=== PATIENT | male | born 1955 | race Caucasian/White ===

== ENCOUNTER 2022-04-09 06:10 | Observation (INO) ==
--- NOTE | 2022-04-03 09:38 | Anesthesiology Consultation ---
Date of Service April 03, 2022 Assessment & Plan (1) Encounter for pre-operative examination: COVID screening: Per assessment on 04/03: No known COVID-19 positive contacts or current COVID-19 related symptoms. Travel screen negative. Patient vaccinated. At surgeon discretion if preop Covid testing being done. Chart Review Chart Review: Acceptable Risk for Surgery and Patient NOT seen in Pre Admission Testing History Surgery Operation Date: 04/09/22 07:30 Proposed Procedures p Robotic Laparoscopic Radical Assisted Retropubic Prostatectomy, Possible Open, Possible Pelvic Lymph Node Dissection, Possible Suprapubic Tube Placement - Bayron Fox MD Height/Weight Height: 6 ft Weight: 102.512 kg Allergies Allergy/AdvReac Type Severity Reaction Status Date / Time No Known Allergies Allergy Unverified 04/03/22 07:34 Medications Home Medications Medication Instructions Recorded Confirmed Last Taken No Known Home Medications 04/03/22 04/03/22 Unknown Past Medical History Medical History Prostate cancer dx 03/2022 Past Family History Family History Father Heart disease Uncle Prostate cancer Other No family history of adverse response to anesthesia Past Surgical History Surgical History History of colonoscopy History of left hip replacement History of prostate biopsy History of umbilical hernia repair History of wisdom tooth extraction Social History Smoking Status: Never smoker Do You Dip or Chew Tobacco: No Hx Alcohol Use: No Hx Substance Use: No substance use type: does not use Lab Results Anesthesia Preop Results Results Anesthesia Widget: WBC 5.83 K/ul (4.8-10.8) 03/25/22 Hgb 15.4 g/dl (14.0-18.0) 03/25/22 Hct 43.6 % (40.1-51.0) 03/25/22 Plt 189 K/uL (130-400) 03/25/22 Na 139 mmol/L (136-145) 03/25/22 K 4.0 mmol/L (3.5-5.1) 03/25/22 Cl 108 mmol/L (98-107) H 03/25/22 CO2 24 mmol/L (21-32) 03/25/22 BUN 17 mg/dl (6-23) 03/25/22 Creat 1.11 mg/dl (0.6-1.4) 03/25/22 Glucose Level 104 mg/dl (70-99(Fasting)) H 03/25/22 Urine Color Yellow 03/25/22 Urine Appearance Clear (Clear) 03/25/22 Urine pH 5.0 (4.5-7.5) 03/25/22 Urine Specific [place] 1.022 (1.000-1.030) 03/25/22 Urine Protein Negative (Negative) 03/25/22 Urine Glucose (UA) Negative (Negative) 03/25/22 Urine Ketones Negative (Negative) 03/25/22 Urine Blood Negative (Negative) 03/25/22 Urine Nitrite Negative (Negative) 03/25/22 Urine Bilirubin Negative (Negative) 03/25/22 Urine Urobilinogen Negative (Negative) 03/25/22 Urine Leukocyte Esterase Negative (Negative) 03/25/22 Testing Electrocardiogram Date: 03/25/22 Findings: + NSR @ (60) Chest X-Ray Date: 03/25/22 FINDINGS: Lung volumes are normal. Lungs are clear. There is no pneumothorax or pleural effusion. Cardiac size is normal. Mediastinal contours are normal. There is no evidence for pulmonary edema. IMPRESSION: No acute cardiopulmonary findings.
[~2022-04-09 06:10] MED LIST: HEPARIN SOD 5,000 UNIT/0.5 ML VIAL SQ SCH; LR 15ML/HR IV SCH; ceFAZolin 2000MG 2,000 MG/15 ML SYR IV SCH
--- NOTE | 2022-04-09 07:06 | History & Physical Bridge Note ---
Date of Service April 09, 2022 History & Physical Bridge Note I have examined the patient, reviewed the History & Physical and in the interval since the performance of the History & Physical I have noted the following changes of clinical significance: no changes noted
[2022-04-09] MEDS ORDERED: fentaNYL citrate 100 MCG/2 ML VIAL IV PRN (07:33)
[2022-04-09] MEDS ORDERED: ePHEDrine sulfate 50 MG/ML AMP IV PRN (07:33)
[2022-04-09] MEDS ORDERED: ATROPINE SULFATE 0.1 MG/ML 10ML SYR IV PRN (07:33)
[2022-04-09] MEDS ORDERED: ONDANSETRON INJ 2 MG/ML 2 ML VIAL IV PRN ×2 (07:33→15:47)
[2022-04-09] MEDS ORDERED: fentaNYL citrate 100 MCG/2 ML VIAL ONE ×2 (07:41)
[2022-04-09] MEDS ORDERED: MIDAZOLAM HCL 1 MG/ML 2ML VIAL ONE (07:41)
[2022-04-09] MEDS ORDERED: BUPIVACAINE 0.5 % 5 MG/1 ML MPF 30ML VIAL ONE (07:48)
[2022-04-09] MEDS ORDERED: BELLADONNA/OPIUM SUPP 60 MG SUPP PR ONE ×2 (08:15→08:45)
[2022-04-09] MEDS ORDERED: ROCURONIUM BROMIDE 10 MG/ML 5 ML VIAL IV ONE ×5 (08:16→10:17)
[2022-04-09] MEDS ORDERED: ONDANSETRON INJ 2 MG/ML 2 ML VIAL ONE ×2 (08:16→09:05)
[2022-04-09] MEDS ORDERED: DEXAMETHASONE SOD INJ 4 MG/ML VIAL ONE (08:16)
[2022-04-09] MEDS ORDERED: PROPOFOL IV EMULSION 10 MG/ML 20 ML VIAL IV ONE (08:16)
[2022-04-09] MEDS ORDERED: LIDOCAINE 2% MPF LOCAL 5 ML VIAL INFIL ONE (08:16)
[2022-04-09] MEDS ORDERED: SURGICEL ABSORB HEMOSTAT 2IN X 14IN TOP ONE ×2 (08:40→09:11)
[2022-04-09] MEDS ORDERED: FLOSEAL HEMOSTATIC MATRIX 10ML TOP ONE (08:40)
[2022-04-09] MEDS ORDERED: HYDROmorphone INJ 2 MG/ML SYR/VIAL ONE (08:50)
[2022-04-09] MEDS ORDERED: GLYCOPYRROLATE 0.2 MG/ML VIAL ONE (09:06)
[2022-04-09] MEDS ORDERED: NEOSTIGMINE METHYLSULFATE 1 MG/ML 10ML VIAL ONE (09:06)
[2022-04-09] MEDS ORDERED: PHENYLEPHRINE 100MCG/ML 5ML SYR ONE (09:06)
[2022-04-09] MEDS ORDERED: LARYING-O-JET KIT (LTA) ONE (10:11)
--- NOTE | 2022-04-09 11:27 | Operative Report ---
[facility] Post Operative Report Pre & Post Diagnosis Operation Date: 04/09/22 08:05 Pre-Op Diagnosis: Prostate Cancer Post-Op Diagnosis: Prostate Cancer I identified the patient and participated in the time-out.: Yes Procedure Operation Date: 04/09/22 08:05 Actual Procedures p Robotic Assisted Laparoscopic Radical Retropubic Prostatectomy, Pelvic Lymph Node Dissection(Not Applicable) - Bayron Fox MD Surgeon Bayron Fox MD Skip Hoist Engineer Edna Terrell Estimated Blood Loss 150 Findings Consistent with Post-Op Diagnosis Specimens 1. Periprostatic fat 2. Left pelvic lymph nodes 3. Right pelvic lymph nodes 4. Prostate and seminal vesicles Description of Procedure The patient was identified in the preoperative holding area, appropriate informed consents were reviewed and completed, and he was transported to the operating suite. Subcutaneous heparin was administered in the pre-operative holding area. Upon arrival in the operating suite, he received appropriate antibiotics and general anesthesia. He was positioned in dorsal lithotomy, a B&O suppository was inserted after digital rectal exam, and he was prepped and draped in standard fashion. A Reed catheter was inserted in the sterile field. A Veress needle was passed per umbilicus with uniform insufflation of the abdomen to 15mmHg. He was placed in steep Trendelenburg position. A periumbilical incision was then made to accommodate a 12mm Visiport with 10mm 0degree laparoscope. Inspection of the abdomen was carried out, and there was no evidence of traumatic entry or injury secondary to the Veress needle. After confirming a clear anterior abdominal wall, ports were subsequently placed in standard robotic prostatectomy fashion without incident. To begin the robotic portion of the case, I attempted to clear the pouch of Arjun, however he had small bowel adherent to the anterior wall of the rectum making it somewhat challenging to completely empty this space. Rather than perform a posterior dissection I elected to proceed in the traditional anterior fashion and did not entirely open the pouch of Arjun. The medial umbilical ligaments were then controlled with bipolar electrocautery just inferior to the umbilicus. Following cauterization, they were divided utilizing monopolar cautery. A peritoneal incision was carried from this location to the medial aspect of the internal inguinal rings bilaterally with care to avoid opening through the ring. This incision was concluded when the vas deferens was reached. Dissection of the bladder and prostate off of the posterior aspect of the pubic arch was completed allowing full visualization of the prostate. The fat overlying the prostate was removed en bloc and passed off the table as a specimen labeled "periprostatic fat". The endopelvic fascia was cleared during this portion of the procedure, and subsequently opened - first on the right and then the left. The incision through the endopelvic fascia began near the prostate-bladder junction and was carried to the apex with extreme care to preserve all lateral levator musculature as well as the periurethral mus culature and sphincter complex. I additionally preserved the puboprostatic ligaments. I then controlled the DVC with a 3-0 V-lock suture in overlapping/figure of 8 fashion. The lymph node dissection was then conducted. External iliac vessels were identified on the pelvic side wall. The packet of fat and lymphatic tissue that resides just under the iliac vein was elevated and off of the vein with a split and roll technique. The packet was dissected laterally to the circumflex vein and distally to the obturator nerve which was preserved. The proximal aspect of the packet was carried towards the bifurcation of the iliac vessels. A combination of monopolar and bipolar cautery were used to assist with control. After completing the dissection on both sides, the packets were collected and passed off of the table as specimens labeled "pelvic lymph nodes". My attention then returned to the prostate, with identification of the bladder neck aided by gentle traction on the Reed catheter and lateral to medial pressure at the presumed level of the bladder neck with the robotic instruments. An anterior cystotomy was made, the Reed balloon deflated and the catheter guided through the incision to allow anterior retraction. I attempted to preserve maximal bladder neck musculature as I circumferentially dissected around the bladder neck. After incision through the posterior aspect of the mucosa, the dissection was carried through detrusor muscle until the bilateral ampullae of the vasa were identified. I then proceeded to dissect a length of vas before transecting each vas. I then dissected each seminal vesicle entirely and utilize these structures to elevate the prostate and perform a posterior dissection behind the prostate splitting the posterior fascia. Care was used to avoid encroachment upon the prostate. Hemostasis was excellent. An incision in the lateral prostatic fascia was then made bilaterally to facilitate control of the vascular pedicles and preservation of the nerve bundles. Vasculature running along the posterior/lateral aspect of the prostate was preserved as well as the tissue containing the nerves. I took a more cautious approach on the right side where all of his positive biopsy cores were located. Nerves were spared aggressively on the left. The pedicles were then controlled with a series of Weck clips. The apical attachments of the prostate were remaining at that stage. The DVC was divided after control with bipolar cautery over the prostate. Continuous inspection from anterior and lateral views allowed me to closely follow the apical contour of the prostate and maximally preserve urethral length and tissue. The prostate was entirely freed at that point, and collected in an EndoCatch bag before being moved out of the field of vision. Hemostasis was confirmed and anastomosis of the bladder and urethra was completed utilizing a double armed V- Lock stitch. A new Reed catheter was inserted and the anastomosis tested with irrigation. There was no evidence of leak. A vamshi style stitch was placed bilaterally to functionally marsupialize the area of the lymph node dissection. The robot was undocked, the specimen extracted through expansion of the sybil- umbilical camera port. The fascia was closed with a series of 0-PDS figure of 8 stitches. The right regulatory assistant port was closed in two layers - with a figure of 8 0-Vicryl to reapproximate the fascia followed by 4-0 Monocryl to close the skin. Monocryl was used to close all other skin incisions. All wounds were dressed with Dermabond. The case was concluded and the patient taken to the PACU in stable condition. Edna Terrell assisted from incision to closure. I attest to the content of the Intraoperative Record and any orders documented therein. Any exceptions are noted below.
[2022-04-09 12:00] LABS: Basophils # (auto) 0.02 K/uL (0-0.2); Basophils % (auto) 0.3 %; Eosinophils # (auto) 0.02 K/uL (0-0.50); Eosinophils % (auto) 0.3 %; Hematocrit (blood only) 44.8 % (40.1-51.0); Hemoglobin 15.3 g/dl (14.0-18.0); Immature Granulocytes # (auto) 0.03 K/uL (0.00-0.02); Immature Granulocytes % (auto) 0.4 %; Lymphocytes # (auto) 0.69 K/uL (1.2-3.4); Lymphocytes % (auto) 8.7 %; Mean Corpuscular Hemoglobin 30.2 pg (25.0-34.0); Mean Corpuscular Hgb Conc 34.2 g/dL (32.0-36.0); Mean Corpuscular Volume 88.5 fL (80.0-100.0); Mean Platelet Volume 9.4 fL (9.4-12.4); Monocytes # (auto) 0.13 K/uL (0.24-0.82); Monocytes % (auto) 1.6 %; Neutrophils # (auto) 7.03 K/uL (1.4-6.5); Neutrophils % (auto) 88.7 %; Platelet Count 182 K/uL (130-400); RDW Standard Deviation 38.3 fL (36.4-46.3); Red Blood Count 5.06 M/uL (4.63-6.08); White Blood Count 7.92 K/ul (4.8-10.8)
[2022-04-09] MEDS: HYDROmorphone INJ 1 MG/ML SYRINGE IV PRN ×4 (12:20→12:35)
[2022-04-09] MEDS ORDERED: HYDROmorphone INJ 1 MG/ML SYRINGE ONE (12:20)
[2022-04-09 12:22] LABS: BUN Creatinine Ratio 15.3 (10-20); Calcium 8.7 mg/dl (8.5-10.1); Creatinine Clr Calc Pharmacy 62.5 ml/min; Est GFR (African American) 58.2 ml/min; Est GFR (Non-African American) 50.2 ml/min; Potassium 4.4 mmol/L (3.5-5.1)
[2022-04-09] MEDS ORDERED: METOCLOPRAMIDE HCL INJ 5 MG/ML 2 ML VIAL IV PRN (12:32)
[2022-04-09] MEDS ORDERED: METOCLOPRAMIDE HCL INJ 5 MG/ML 2 ML VIAL ONE (12:33)
--- NOTE | 2022-04-09 13:08 | Anesthesiology Progress Note ---
Date of Service April 09, 2022 Anesthesia Post Procedure Vital Signs Vital Signs: Temp Pulse Resp BP Pulse Ox O2 Del Method O2 Flow Rate 04/09/22 12:50 54 L 17 119/66 95 Nasal Cannula 4 04/09/22 12:40 59 L 17 114/75 95 Nasal Cannula 4 04/09/22 12:30 36.3 C L 59 L 18 107/66 95 Nasal Cannula 4 04/09/22 12:20 55 L 16 109/70 95 Nasal Cannula 4 04/09/22 12:10 61 16 107/70 95 Oxymask 5 04/09/22 12:00 64 16 111/73 95 Oxymask 5 04/09/22 11:50 68 16 116/78 95 Oxymask 5 04/09/22 11:40 69 18 119/78 93 Oxymask 5 04/09/22 11:31 36.3 C L 75 18 127/77 93 Oxymask 5 04/09/22 07:33 36.9 C 70 20 165/93 H 94 Room Air Transfer of Care Handoff Completed per policy Notes Mental Status: alert / awake / arousable and participated in evaluation Patient Amnestic to Procedure: Yes Nausea / Vomiting: adequately controlled Pain: adequately controlled Airway Patency, RR, SpO2: stable & adequate BP & HR: stable & adequate Hydration State: stable & adequate Anesthetic Complications: no major complications apparent and Pt Satisfied with anesthetic care
[2022-04-09] MEDS ORDERED: ACETAMINOPHEN 325 MG TAB PO PRN (15:47)
[2022-04-09] MEDS ORDERED: oxyCODONE HCL IR 5 MG TAB (IMMEDIATE RELEASE) PO PRN ×2 (15:47)
[2022-04-09] MEDS ORDERED: MoRPHine SULFATE 4 MG/ML 1 ML CARP\\VIAL IV PRN (15:47)
[2022-04-09] MEDS ORDERED: MoRPHine SULFATE 2 MG/ML CARP IV PRN (15:47)
[2022-04-09] MEDS: LACTATED RINGER'S 1,000 ML IV SCH (17:32)
[2022-04-09] MEDS: ceFAZolin 2000MG 2,000 MG/15 ML SYR IV SCH (18:44)
[2022-04-09] MEDS: HEPARIN SOD 5,000 UNIT/0.5 ML VIAL SQ SCH (20:19)
[2022-04-09] MEDS: DOCUSATE SODIUM 100 MG CAP PO SCH (20:19)
[2022-04-10] MEDS: ceFAZolin 2000MG 2,000 MG/15 ML SYR IV SCH (00:05)
[2022-04-10] MEDS: LACTATED RINGER'S 1,000 ML IV SCH ×2 (02:33→12:10)
[2022-04-10] MEDS: HEPARIN SOD 5,000 UNIT/0.5 ML VIAL SQ SCH (08:04)
[2022-04-10] MEDS: DOCUSATE SODIUM 100 MG CAP PO SCH (08:04)
[2022-04-10 08:52] LABS: Basophils # (auto) 0.01 K/uL (0-0.2); Basophils % (auto) 0.1 %; Hematocrit (blood only) 42.6 % (40.1-51.0); Hemoglobin 14.9 g/dl (14.0-18.0); Immature Granulocytes # (auto) 0.08 K/uL (0.00-0.02); Immature Granulocytes % (auto) 0.6 %; Lymphocytes # (auto) 0.93 K/uL (1.2-3.4); Lymphocytes % (auto) 6.6 %; Mean Corpuscular Hemoglobin 30.5 pg (25.0-34.0); Mean Corpuscular Volume 87.1 fL (80.0-100.0); Mean Platelet Volume 9.8 fL (9.4-12.4); Monocytes # (auto) 0.87 K/uL (0.24-0.82); Monocytes % (auto) 6.2 %; Neutrophils # (auto) 12.15 K/uL (1.4-6.5); Neutrophils % (auto) 86.5 %; Platelet Count 184 K/uL (130-400); RDW Coefficient of Variation 11.8 % (11.5-14.5); RDW Standard Deviation 37.5 fL (36.4-46.3); Red Blood Count 4.89 M/uL (4.63-6.08); White Blood Count 14.04 K/ul (4.8-10.8)
--- NOTE | 2022-04-10 09:12 | Urology Progress Note ---
Date of Service April 10, 2022 Assessment & Plan (1) Prostate cancer: Plan: Postop day #1 status post robotic prostatectomy Doing extremely well Advance diet this morning Reed teaching Discharge home later this morning Admission and Anticipated Discharge Date Admission Date: April 09, 2022 Subjective No major issues overnight He was ambulatory His pain is well controlled Is tolerating diet He is anxious to go home Physical Exam Physical Exam: Hyperlipidemia patient abdomen soft, incisions completely appropriate, no concerning findings Urine is clear Results & Data ([facility]) Vital Signs (Past 12 Hours) Vital Signs Temp Pulse Resp BP BP Pulse Ox O2 Del Method 04/10/22 07:40 36.8 C 60 20 109/68 92 Room Air 04/10/22 03:00 37.4 C 56 L 20 98/58 L 91 Room Air 04/09/22 22:11 36.9 C 60 18 105/67 94 Room Air PG Care Time/CCT Total # of Minutes Spent Total Time Spent with Patient: Total time spent is greater than 50% in coordination of care (as documented) at patient's floor/unit and/or counseling patient: Coding Level of Care Code None Diagnoses Prostate cancer C61
[2022-04-10 09:26] LABS: BUN Creatinine Ratio 16.2 (10-20); Calcium 8.7 mg/dl (8.5-10.1); Creatinine Clr Calc Pharmacy 76.9 ml/min; Est GFR (African American) 74.9 ml/min; Est GFR (Non-African American) 64.6 ml/min; Potassium 4.3 mmol/L (3.5-5.1)
--- NOTE | 2022-04-10 17:19 | Discharge Summary ---
Date of Service April 10, 2022 Admission HPI Per Admitting Provider 66yo M with prostate cancer who presents for prostatectomy Admission Exam Per Admitting Provider Constitutional well developed and well nourished Neck neck nontender Respiratory normal respiratory effort; no respiratory distress and does not use accessory muscles Cardiovascular Rate/Rhythm: regular rate Vessels: radial pulses present Extremities: no edema Gastrointestinal (Abdomen) Inspection/Auscultation: abdomen normal to inspection Percussion/Palpation: abdomen soft; abdomen nontender and no guarding Musculoskeletal Head/Neck/Chest: normocephalic and head atraumatic Extremities: extremities normal to inspection Skin no rashes and no lesions Trauma: no evidence of skin trauma Neurologic awake; not obtunded Speech / Cognition: normal speech Motor/Sensory: no tremor Psychiatric Orientation: alert and oriented x 3 Genitourinary no CVA tenderness Lymphatic no lymphadenopathy Principal Diagnosis Prostate cancer Discharge Exam Constitutional no acute distress Respiratory no respiratory distress and no labored breathing Gastrointestinal (Abdomen) Incisions appropriate Neurologic moves all extremities and awake Psychiatric A+Ox3, euthymic affect Genitourinary Reed catheter intact, draining clear yellow urine Discharge Data Allergies Allergy/AdvReac Type Severity Reaction Status Date / Time No Known Allergies Allergy Verified 04/09/22 07:08 Procedures Performed Operation Date: 04/09/22 08:05 Actual Procedures p Robotic Assisted Laparoscopic Radical Retropubic Prostatectomy, Pelvic Lymph Node Dissection(Not Applicable) - Bayron Fox MD Hospital Course (1) Prostate nodule: Plan 66yo M admitted for a robotic prostatectomy. Patient tolerated the procedure very well. No acute issues postoperatively. He was in stable condition overnight with appropriate urine output and stable labs. He was subsequently discharged home with a Reed catheter on postop day #1. He was in stable condition at time of discharge. Postoperative follow-up appointments in place. Total Time Total Time Spent Total Time Spent (In Minutes): 15 Discharge Plan Discharge Items Patient Disposition: Home - Self-Care Reason For Visit: Prostate Cancer Discharge Diagnosis: Prostate Cancer Activity: Per Instructions section Lifting: No more than 25 pounds Bathing Comment: OK to shower. No tub baths or soaks. Sexual Activity: Wait until after follow-up appointment Exercise/Sports: Wait until after follow-up appointment Driving/Machine Use: Do not drive if taking prescription pain medication. Non-emergency contact: Surgeon and Urologist Call non-emergency contact if: you have any medication questions, your pain is worsening, your pain is concerning for you, you have a fever, your wound has increased redness, your wound has increased drainage and your wound pain has increased Follow-up/Referrals: Bayron Fox MD [Physician] - 04/25/22 1:05 pm Jose Alberto Cha MD [Primary Care Provider] - [facility],Nurse [FAKE FOR SCHEDULES] - 04/16/22 9:00 am Diet: Regular Addtl Attending Provider Instructions: Please take all medications as prescribed and keep all follow-ups as scheduled. Please call our office at [phone] with any questions, concerns or need to reschedule appointments for any reason. We are happy to assist you We have sent an antibiotic to your pharmacy of choice. Please begin antibiotic as prescribed the day BEFORE your scheduled catheter removal and continue until complete. Activity: We recommend having someone with you for the first few days after surgery to help care for you. For the first 2 weeks after surgery, we would like you to get up and walk around your house. However, we recommend limit physical activity that would increase your heart rate. This will allow your body to rest and heal. Take naps if you feel tired. Don't lift anything heavier than 25 pounds, mow the law or ride a bicycle until your follow-up appointment. Please avoid long car rides. Home Care: Unless directed otherwise, drink 6 to 8 glasses of water a day (enough to keep your urine light colored). This will also help keep a healthy flow of urine. We recommend using a stool softener for the first two weeks to avoid constipation. Reed Catheter or Suprapubic Catheter care: Keep the catheter well secured with either a leg back or leg strap with large bag. Empty your bag when it's about half full. You may notice some blood in the bag. This is normal after surgery and while the catheter is in place. Use mild soap (such as Dove or Dial) and water to wash the catheter and the head of your penis daily, or more frequently if needed. Return to your normal diet, we encourage good protein intake to promote healing. You may shower as normal. Please avoid tub baths or soaking until catheter removed and incisions well healed. Wearing sweat pants while you have the catheter is recommended, they will be more comfortable. Follow-up Your follow up appointments for having your catheter removed, and follow up with your physician should already be scheduled. If you have any questions regarding this, please contact our office. Your final pathology report will be discussed at your physician follow-up appointment. Call [facility] at [phone] right away if you have any of the following: Chest pain or trouble breathing (call 911 or go to the hospital) Fever of 101F or higher, uncontrolled vomiting Heavy bleeding, clots, or bright red blood from the catheter Catheter that falls out or stops draining Foul-smelling discharge from your catheter Redness, swelling, warmth, or increased pain at your incision site Drainage, pus, or bleeding from your incision Pending Studies at Discharge: Yes (pathology) Stand-Alone Forms: My [facility] [address] [employer], Smoking Cessation Medications and DC Order Prescriptions: New ciprofloxacin HCl 500 mg tablet 500 mg PO BID 3 Days Qty: 6 0RF Rx Instructions: Start 1 day prior to catheter removal docusate sodium [Colace] 100 mg capsule 100 mg PO BID Qty: 30 0RF Rx Instructions: Take twice daily for 2 weeks, then as needed thereafter Discharge Orders: Discharge Order (Routine); Ordered 04/10/22 Ordered By: Edna Terrell Admission Data Admit Date/Time: 04/09/22 11:37 Attending Provider: Bayron Fox Admit Provider: Bayron Fox Primary Care Provider: Jose Alberto Cha Other Interventions: Discharge Summary Assessment (RN) Last Done: 04/10/22 12:51 Coding Level of Care Code D/C DAY MANAGEMENT <30 MINS Diagnoses Prostate nodule N40.2
== END 2022-04-10 13:45 | disposition home or self-care (01) ==
LOC: ASU 06:10 → PACUINP 11:37 → INTOOBSV 11:37 → 3N 17:31
DX: C61 Malignant neoplasm of prostate